=== PATIENT | male | born 1995 | race Hispanic/Latino ===

== ENCOUNTER 2019-02-09 21:50 | Emergency (ER) | payer MEDICAID ==
[2019-02-09] MEDS ORDERED: KETOROLAC 60 MG/2 ML INJ IM ONE (22:58)
[2019-02-09 23:23] LABS: Basophils # (Auto) 0.1 K/mm3 (0.0-0.1); Basophils % (Auto) 0.7 % (0.0-1.8); Eosinophils # (Auto) 0.2 K/mm3 (0.0-0.4); Eosinophils % (Auto) 2.1 % (0.0-4.3); Hematocrit 46.3 % (35.5-45.6); Hemoglobin 15.3 gm/dl (11.8-15.2); Lymphocytes # (Auto) 2.7 K/mm3 (1.2-5.4); Lymphocytes % (Auto) 23.4 % (13.4-35.0); Mean Corpuscular HGB Conc 33 % (32-34); Mean Corpuscular Volume 82 fl (84-94); Monocytes # (Auto) 0.7 K/mm3 (0.0-0.8); Monocytes % (Auto) 6.4 % (0.0-7.3); Platelet Count 313 K/mm3 (140-440); Red Blood Count 5.68 M/mm3 (3.65-5.03); Red Cell Distribution Width 13.8 % (13.2-15.2)
--- NOTE | 2019-02-09 23:26 | XRay Report ---
CHEST 1 VIEW 02/09/2019 10:57 PM INDICATION / CLINICAL INFORMATION: cp, sob. 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 HEART / MEDIASTINUM: No significant abnormality. LUNGS / PLEURA: Suboptimal inspiratory effort. No significant pulmonary or pleural abnormality. No pn eumothorax. ADDITIONAL FINDINGS: No significant additional findings. IMPRESSION: 1. No acute findings. Signer Name: Hunter Robledo MD Signed: 02/09/2019 11:22 PM Workstation Name: [id number]
[2019-02-09 23:38] LABS: BUN/Creatinine Ratio 10; Blood Urea Nitrogen 9 mg/dL (9-20); Calcium 9.5 mg/dL (8.4-10.2); Hemolysis Index 8
--- NOTE | 2019-02-10 00:54 | Cat Scan Report ---
CTA CHEST WITH CONTRAST INDICATION / CLINICAL INFORMATION: cp, sob, mild d-dimer elevation. TECHNIQUE: Axial CT images were obtained through the chest after injection of 100 mL Omnipaque 350 IV contrast. 3 plane MIP and/or 3D reconstructions were produced. All CT scans at this location are performed usin g CT dose reduction for ALARA by means of automated exposure control. COMPARISON: None available. FINDINGS: The quality of the study is fair due to suboptimal timing the contrast bolus. PULMONARY ARTERIES: No definite pulmonary emboli. THORACIC AORTA: No significant abnormality. HEART: No significant abnormality. CORONARY ARTERIES: No significant calcification. MEDIASTINUM / SHIV: No significant abnormality. PLEURA: No pleural effusion. No pneumothorax. LUNGS: No acute air space or interstitial disease. ADDITIONAL FINDINGS: Mild symmetric bilateral gynecomastia. UPPER ABDOMEN: Liver is diffusely hypodense characteristic of fatty infiltration. No acute abnormalit y. SKELETAL STRUCTURES: No significant osseous abnormality. IMPRESSION: 1. No CT evidence for pulmonary embolism. 2. No acute pulmonary or pleural findings. 3. Hepatic steatosis. Signer Name: Jesus Toro MD Signed: 02/10/2019 12:50 AM Workstation Name: [id number]
--- NOTE | 2019-02-10 01:10 | Emergency Department Report ---
ED Chest Pain HPI - General Chief Complaint: Chest Pain Stated Complaint: DIFF BREATHING LT ARM PAIN DIZZY Time Seen by Provider: 02/09/19 21:55 Source: patient, family Mode of arrival: Wheelchair Limitations: Physical Limitation - History of Present Illness Initial Comments: 23-year-old male with a past medical history of BOOKKEEPER ASSISTANT shun, back surgery, and br ain surgery presents to the hospital with complaints of chest pain started today. First patient so this afternoon calling a sharp/throbbing pulsating pain. Patient became anxious with pain experienced left arm discomfort and shortness of breath. No complaints of nausea, vomiting, diaphoresis. Patient is able to calm himself down and symptoms resolved. It is evening symptoms returned or worse. Patient does have a history of anxiety. He denies history of PE/DVT, hypertension, heart disease, calf tenderness, cough or cold symptoms, leg edema, or recent travel. He is wheelchair bound. Severity scale (0 -10): 6 - Related Data Previous Rx's Medication Instructions Recorded Last Taken Type Cephalexin [Keflex] 500 mg PO BID #20 capsule 10/26/13 Unknown Rx Ibuprofen [Motrin] 800 mg PO Q8H PRN #20 tablet 10/26/13 Unknown Rx Cyclobenzaprine HCl [Flexeril 5mg] 5 mg PO TID #20 tablet 08/23/14 Unknown Rx Ibuprofen [Motrin] 800 mg PO Q8H #20 tablet 08/23/14 Unknown Rx Ciprofloxacin HCl [Ciprofloxacin 500 mg PO BID #14 tablet 11/17/14 Unknown Rx TAB] Phenazopyridine [Pyridium] 100 mg PO TID #9 tab 11/17/14 Unknown Rx Ibuprofen [Motrin] 800 mg PO Q8HR PRN #30 tablet 02/10/19 Unknown Rx Allergies Allergy/AdvReac Type Severity Reaction Status Date / Time adhesive AdvReac Rash Verified 11/17/14 18:58 Heart Score - HEART Score History: Slightly suspicious EKG: Normal Age: < 45 Risk factors: 1-2 risk factors Troponin: < normal limit HEART Score: 1 ED Review of Systems ROS: Stated complaint: DIFF BREATHING LT ARM PAIN DIZZY Other details as noted in HPI Comment: All other systems reviewed and negative ED Past Medical Hx - Past Medical History Hx of Cancer: Yes (spinal) Additional medical history: 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 RADIATION--LAST IN APRIL. ataxia - Surgical History Past Surgical History?: Yes Additional Surgical History: back surgery x3. BRAIN SURGERY. BOOKKEEPER ASSISTANT SHUNT. tonsil - Social History Smoking Status: Never Smoker Substance Use Type: Alcohol - Medications Home Medications: Home Medications Medication Instructions Recorded Confirmed Last Taken Type Cephalexin [Keflex] 500 mg PO BID #20 capsule 10/26/13 Unknown Rx Ibuprofen [Motrin] 800 mg PO Q8H PRN #20 tablet 10/26/13 Unknown Rx Cyclobenzaprine HCl [Flexeril 5mg] 5 mg PO TID #20 tablet 08/23/14 Unknown Rx Ibuprofen [Motrin] 800 mg PO Q8H #20 tablet 08/23/14 Unknown Rx Ciprofloxacin HCl [Ciprofloxacin 500 mg PO BID #14 tablet 11/17/14 Unknown Rx TAB] Phenazopyridine [Pyridium] 100 mg PO TID #9 tab 11/17/14 Unknown Rx Ibuprofen [Motrin] 800 mg PO Q8HR PRN #30 tablet 02/10/19 Unknown Rx ED Physical Exam - General Limitations: Physical Limitation - Other Other exam information: General: No acute distress Head: Atraumatic ENT: Moist mucous membranes Neck: Normal appearance, no midline tenderness Chest: Clear to auscultation bilaterally CV: Regular rate and rhythm, chest wall nontender Abdomen: Soft, normal bowel sounds, nontender, nondistended, no rebound or guarding Back: lower midline vertical surgical scar from Extremity: Normal inspection infection, full range of motion Neuro: Alert O x 3, no facial asymmetry, speech clear, no gross motor sensory deficit Psych: Appropriate behavior Skin: No rash ED Course Vital Signs 02/09/19 02/09/19 02/09/19 21:54 22:20 22:21 Temperature 97.7 F 97.8 F Pulse Rate 100 H 92 H 98 H Respiratory 18 12 12 Rate Blood Pressure 136/79 Blood Pressure 121/69 [Left] O2 Sat by Pulse 97 96 95 Oximetry 02/09/19 02/09/19 02/09/19 22:30 22:45 23:00 Temperature Pulse Rate 86 83 89 Respiratory 12 12 20 Rate Blood Pressure 119/68 118/63 131/74 Blood Pressure [Left] O2 Sat by Pulse 92 96 97 Oximetry 02/09/19 23:15 Temperature Pulse Rate 87 Respiratory 17 Rate Blood Pressure 119/55 Blood Pressure [Left] O2 Sat by Pulse 94 Oximetry CHUCK score - Chuck Score Age > 65: (0) No Aspirin use within the Past 7 Days: (0) No 3 or more CAD Risk Factors: (0) No 2 or more Angina events in past 24 hrs: (0) No Known CAD with more than 50% Stenosis: (0) No Elevated Cardiac Markers: (0) No ST Deviation Greater than 0.5mm: (0) No CHUCK Score: 0 ED Medical Decision Making - Lab Data Result diagrams: 02/09/19 23:06 02/09/19 23:06 Lab Results 02/09/19 02/09/19 02/09/19 Range/Units 23:06 23:06 23:06 WBC 11.6 H (4.5-11.0) K/mm3 RBC 5.68 H (3.65-5.03) M/mm3 Hgb 15.3 H (11.8-15.2) gm/dl Hct 46.3 H (35.5-45.6) % MCV 82 L (84-94) fl MCH 27 L (28-32) pg MCHC 33 (32-34) % RDW 13.8 (13.2-15.2) % Plt Count 313 (140-440) K/mm3 Lymph % (Auto) 23.4 (13.4-35.0) % [place] % (Auto) 6.4 (0.0-7.3) % Eos % (Auto) 2.1 (0.0-4.3) % Baso % (Auto) 0.7 (0.0-1.8) % Lymph # 2.7 (1.2-5.4) K/mm3 [place] # 0.7 (0.0-0.8) K/mm3 Eos # 0.2 (0.0-0.4) K/mm3 Baso # 0.1 (0.0-0.1) K/mm3 Seg Neutrophils % 67.4 (40.0-70.0) % Seg Neutrophils # 7.8 H (1.8-7.7) K/mm3 D-Dimer 262.77 H (0-234) ng/mlDDU Sodium 140 (137-145) mmol/L Potassium 4.1 (3.6-5.0) mmol/L Chloride 101.6 (98-107) mmol/L Carbon Dioxide 28 (22-30) mmol/L Anion Gap 15 mmol/L BUN 9 (9-20) mg/dL Creatinine 0.9 (0.8-1.5) mg/dL Estimated GFR > 60 ml/min BUN/Creatinine Ratio 10 % Glucose 136 H (75-100) mg/dL Calcium 9.5 (8.4-10.2) mg/dL Troponin T < 0.010 (0.00-0.029) ng/mL - EKG Data -: EKG Interpreted by Co EKG shows normal: sinus rhythm, ST-T waves (no stemi) Rate: normal (84) - Radiology Data Radiology results: report reviewed CHEST 1 VIEW 02/09/2019 10:57 PM INDICATION / CLINICAL INFORMATION: cp, sob. COMPARISON: Chest x-ray 08/23/2014 FINDINGS: SUPPORT DEVICES: Right BOOKKEEPER ASSISTANT shunt catheter tubing. HEART / MEDIASTINUM: No significant abnormality. LUNGS / PLEURA: Suboptimal inspiratory effort. No significant pulmonary or pleural abnormality. No pneumothorax. ADDITIONAL FINDINGS: No significant additional findings. IMPRESSION: 1. No acute findings. CTA CHEST WITH CONTRAST INDICATION / CLINICAL INFORMATION: cp, sob, mild d-dimer elevation. TECHNIQUE: Axial CT images were obtained through the chest after in jection of 100 mL Omnipaque 350 IV contrast. 3 plane MIP and/or 3D reconstructions were produced. All CT scans at this location are performed using CT dose reduction for ALARA by means of automated exposure control. COMPARISON: None available. FINDINGS: The quality of the study is fair due to suboptimal timing the contrast bolus. PULMONARY ARTERIES: No definite pulmonary emboli. THORACIC AORTA: No significant abnormality. HEART: No significant abnormality. CORONARY ARTERIES: No significant calcification. MEDIASTINUM / SHIV: No significant abnormality. PLEURA: No pleural effusion. No pneumothorax. LUNGS: No acute air space or interstitial disease. ADDITIONAL FINDINGS: Mild symmetric bilateral gynecomastia. UPPER ABDOMEN: Liver is diffusely hypodense characteristic of fatty infiltration. No acute abnormality. SKELETAL STRUCTURES: No significant osseous abnormality. IMPRESSION: 1. No CT evidence for pulmonary embolism. 2. No acute pulmonary or pleural findings. 3. Hepatic steatosis. - Medical Decision Making pt does have any cardiac risk factors. D-dimer was slightly elevated. CT angiogram was negative. Patient reports feeling better since symptom onset. He received Toradol in the ED. No signs of hypoxia or cardiac instability. Patient be sent home with PMD follow-up. pt was informed to f/u with his doctor. he plans to f/u for better anxiety tx. - Differential Diagnosis PE, MSK pain, muscle strain, anxiety, pneumothorax, SC Critical Care Time: No Critical care attestation.: If time is entered above; I have spent that time in minutes in the direct care of this critically ill patient, excluding procedure time. ED Disposition Clinical Impression: Atypical chest pain, Anxiety Disposition: TO HOME OR SELFCARE Is pt being admited?: No Does the pt Need Aspirin: No Condition: Stable Instructions: Chest Pain (ED), Anxiety (ED) Additional Instructions: Take the medication as prescribed. Follow-up with your doctor or doctor/clinic provided. Return if symptoms worsen as indicated by your discharge instructions. Prescriptions: Ibuprofen [Motrin] 800 mg PO Q8HR PRN #30 tablet PRN Reason: Pain , Severe (7-10) Referrals: your, doctor [Other] - 3-5 Days Time of Disposition: 01:15
[2019-02-10 01:20] VITALS: BP 110/77
== END 2019-02-10 01:24 | disposition home or self-care (01) ==
LOC: ED 21:50
DX: F41.9 Anxiety disorder, unspecified (principal); R07.89 Other chest pain; Z88.5 Allergy status to narcotic agent; Z79.1 Long term (current) use of non-steroidal anti-inflammatories (NSAID); Z79.899 Other long term (current) drug therapy
CPT/HCPCS: 36415; 71045; 71275; 80048; 84484; 85025; 85379; 93005; 93010; 96372; 99284; J1885; Q9967

== ENCOUNTER 2020-08-27 11:28 | Emergency (ER) | payer MEDICAID ==
[2020-08-27 12:19] VITALS: BP 122/79
[2020-08-27 13:54] LABS: Bacteria,Urine 2+ /HPF (Negative); Bilirubin,Urine NEG (Negative); Blood,Urine NEG (Negative); Color,Urine Yellow (Yellow); Mucus,Urine 1+ /HPF; Protein,Urine <15 mg/dL mg/dL (Negative); Urobilinogen,Urine < 2.0 mg/dL (<2.0)
[2020-08-27] MEDS ORDERED: LIDOCAINE-MPF (1%) 10 MG/1 ML VIAL 5 ML INFILTRATI ONE (13:59)
[2020-08-27] MEDS ORDERED: AZITHROMYCIN 250 MG TAB PO ONE (13:59)
--- NOTE | 2020-08-27 15:43 | Emergency Department Report ---
ED Male HPI - General Chief complaint: Urogenital-Male Stated complaint: UTI Time Seen by Provider: 08/27/20 11:48 Source: patient Mode of arrival: Ambulatory Limitations: No Limitations - History of Present Illness Initial comments: This is a 24-year-old male nontoxic, well nourished in appearance, no acute signs of distress presents to the ED with c/o of dysuria and urinary frequency x several days. Patient stated that he straight cath himself frequently due to central nervous system history. Patient denies any penile discharge, bleeding, ulcers or lesions. Patient denies being sexually active. Patient denies any back or flank pain. Patient denies any pelvic or abdominal pain. Patient denies any nausea, vomiting, chest pain, shortness of breathe, fever, chills, headache, back pain, numbness, tingling, stiff neck. Patient denies any urinary symptoms. Patient denies any allergies. MD Complaint: dysuria -: days(s) Radiation: none Severity: mild Severity scale (0 -10): 3 Quality: burning Consistency: constant Improves with: none Worsens with: urination dysuria. denies: discharge, swelling, mass, rash, urinary retention, blood in urine, fever, nausea/vomiting, incontinence - Related Data Previous Rx's Medication Instructions Recorded Last Taken Type Cephalexin [Keflex] 500 mg PO BID #20 capsule 10/26/13 Unknown Rx Ibuprofen [Motrin] 800 mg PO Q8H PRN #20 tablet 10/26/13 Unknown Rx Cyclobenzaprine HCl [Flexeril 5mg] 5 mg PO TID #20 tablet 08/23/14 Unknown Rx Ibuprofen [Motrin] 800 mg PO Q8H #20 tablet 08/23/14 Unknown Rx Ciprofloxacin HCl [Ciprofloxacin 500 mg PO BID #14 tablet 11/17/14 Unknown Rx TAB] Phenazopyridine [Pyridium] 100 mg PO TID #9 tab 11/17/14 Unknown Rx Ibuprofen [Motrin] 800 mg PO Q8HR PRN #30 tablet 02/10/19 Unknown Rx cephALEXin [Keflex] 500 mg PO Q12HR #20 cap 08/27/20 Unknown Rx Allergies Allergy/AdvReac Type Severity Reaction Status Date / Time adhesive AdvReac Rash Verified 08/27/20 14:01 ED Review of Systems ROS: Stated complaint: UTI Other details as noted in HPI Comment: All other systems reviewed and negative Constitutional: denies: chills, fever Eyes: denies: eye pain, eye discharge, vision change ENT: denies: ear pain, throat pain Respiratory: denies: cough, shortness of breath, wheezing Cardiovascular: denies: chest pain, palpitations Endocrine: no symptoms reported Gastrointestinal: denies: abdominal pain, nausea, diarrhea Genitourinary: dysuria, frequency. denies: urgency, hematuria, discharge, testicular pain, testicular mass Musculoskeletal: denies: back pain, joint swelling, arthralgia Skin: denies: rash, lesions Neurological: denies: headache, weakness, paresthesias Psychiatric: denies: anxiety, depression Hematological/Lymphatic: denies: easy bleeding, easy bruising ED Past Medical Hx - Past Medical History Additional medical history: 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 RADIATION--LAST IN APRIL. ataxia - Surgical History Additional Surgical History: back surgery x3. BRAIN SURGERY. APPLICATIONS DEVELOPMENT CONSULTANT SHUNT. tonsil - Social History Smoking Status: Never Smoker Substance Use Type: Alcohol - Medications Home Medications: Home Medications Medication Instructions Recorded Confirmed Last Taken Type Cephalexin [Keflex] 500 mg PO BID #20 capsule 10/26/13 Unknown Rx Ibuprofen [Motrin] 800 mg PO Q8H PRN #20 tablet 10/26/13 Unknown Rx Cyclobenzaprine HCl [Flexeril 5mg] 5 mg PO TID #20 tablet 08/23/14 Unknown Rx Ibuprofen [Motrin] 800 mg PO Q8H #20 tablet 08/23/14 Unknown Rx Ciprofloxacin HCl [Ciprofloxacin 500 mg PO BID #14 tablet 11/17/14 Unknown Rx TAB] Phenazopyridine [Pyridium] 100 mg PO TID #9 tab 11/17/14 Unknown Rx Ibuprofen [Motrin] 800 mg PO Q8HR PRN #30 tablet 02/10/19 Unknown Rx cephALEXin [Keflex] 500 mg PO Q12HR #20 cap 08/27/20 Unknown Rx ED Physical Exam - General Limitations: No Limitations General appearance: alert, in no apparent distress - Head Head exam: Present: atraumatic, normocephalic - Eye Eye exam: Present: normal appearance - Neck Neck exam: Present: normal inspection, full ROM - Respiratory Respiratory exam: Absent: respiratory distress - Cardiovascular Cardiovascular Exam: Present: regular rate - GI/Abdominal GI/Abdominal exam: Present: soft, normal bowel sounds. Absent: distended, tenderness, guarding, rebound, rigid, diminished bowel sounds - Back Exam Back exam: Present: full ROM. Absent: tenderness, CVA tenderness (R), CVA tenderness (L), muscle spasm, paraspinal tenderness, vertebral tenderness, rash noted - Neurological Exam Neurological exam: Present: alert, oriented X3 - Psychiatric Psychiatric exam: Present: normal affect, normal mood - Skin Skin exam: Present: warm, dry, intact, normal color. Absent: rash ED Course Vital Signs 08/27/20 12:13 Temperature 97.9 F Pulse Rate 76 Respiratory 20 Rate Blood Pressure 122/79 O2 Sat by Pulse 97 Oximetry - Reevaluation(s) Reevaluation #1: 08/27/20 15:41 Patient is speaking in full sentences with no signs of distress noted. ED Medical Decision Making - Lab Data Lab Results 08/27/20 Range/Units 13:22 Urine Color Yellow (Yellow) Urine Turbidity Cloudy (Clear) Urine pH 5.0 (5.0-7.0) Ur Specific [place] 1.021 (1.003-1.030) Urine Protein <15 mg/dl (Negative) mg/dL Urine Glucose (UA) Neg (Negative) mg/dL Urine Ketones Neg (Negative) mg/dL Urine Blood Neg (Negative) Urine Nitrite Pos (Negative) Urine Bilirubin Neg (Negative) Urine Urobilinogen < 2.0 (<2.0) mg/dL Ur Leukocyte Esterase Mod (Negative) Urine WBC (Auto) 156.0 H (0.0-6.0) /HPF Urine RBC (Auto) 12.0 (0.0-6.0) /HPF U Epithel Cells (Auto) < 1.0 (0-13.0) /HPF Urine Bacteria (Auto) 2+ (Negative) /HPF Urine Mucus 1+ /HPF - Medical Decision Making This is a 24-year-old female that presents with UTI. Patient is stable and was examined by me. UA obtained. Patient does not have any CVA tenderness. No s igns or symptoms of pyelonephritis. Patient received Rocephin 1G and azithromycin in the ED. Patient is discharged with Keflex. Patient was instructed to Follow-up with a primary care doctor in 3-5 days or if symptoms worsen and continue return to emergency room as soon as possible. At time of discharge, the patient does not seem toxic or ill in appearance. No acute signs of distress noted. Patient agrees to discharge treatment plan of care. No further questions noted by the patient. Critical care attestation.: If time is entered above; I have spent that time in minutes in the direct care of this critically ill patient, excluding procedure time. ED Disposition Clinical Impression: UTI (urinary tract infection) Qualifiers: Urinary tract infection type: acute cystitis Hematuria presence: without hematuria Qualified Code(s): N30.00 - Acute cystitis without hematuria Disposition: - TO HOME OR SELFCARE Is pt being admited?: No Does the pt Need Aspirin: No Condition: Stable Instructions: Urinary Tract Infection, Adult Additional Instructions: Follow-up with a primary care doctor in 3-5 days or if symptoms worsen and continue return to emergency room as soon as possible. Prescriptions: cephALEXin [Keflex] 500 mg PO Q12HR #20 cap Referrals: JANNA PATTON MD [Primary Care Provider] - 3-5 Days RANCHO DOCKERY MD [Staff Physician] - 3-5 Days Time of Disposition: 15:43
== END 2020-08-27 16:39 | disposition home or self-care (01) ==
LOC: ED 11:28
DX: N39.0 Urinary tract infection, site not specified (principal); Z98.890 Other specified postprocedural states; Z79.1 Long term (current) use of non-steroidal anti-inflammatories (NSAID); Z79.899 Other long term (current) drug therapy; Z88.8 Allergy status to other drugs, medicaments and biological substances
CPT/HCPCS: 81001; 96372; 99283; J0696